=== PATIENT | female | born 1950 | race Caucasian/White ===

== ENCOUNTER 2020-09-15 19:45 | Inpatient (IN) ==
[2020-09-15] MEDS ORDERED: SODIUM CHLORIDE 0.9% 1,000 ML IV STA (20:32)
[2020-09-15 20:59] LABS: Basophils # 0.1 10*3/uL (0.0-0.2); Basophils % 0.3 % (0.0-0.8); Eosinophils % 0.1 % (0.00-10.9); Hematocrit 22.7 VOL% (35.7-47.0); Hemoglobin 6.6 GM/DL (12.0-16.0); Immature Granulocytes % 0.8 %; Immature Granulocytes Absolute 0.12 #; Lymphocytes # 1.1 10*3/uL (1.4-4.0); Lymphocytes % 7.3 % (21.3-54.2); Mean Corpuscular HGB Conc 29.1 GM/DL (32-36); Mean Corpuscular Volume 71.6 FL (87-102); Mean Platelet Volume 9.4 FL (9.6-12.0); Monocytes % 3.8 % (1.7-12.7); Neutrophils % 87.7 % (38.7-73.9); Platelet Count 676 T/CUMM (130-400); Red Blood Count 3.17 MC/CUMM (3.8-5.5); Red Cell Distribution Width 18.6 % (9.3-17.3)
[2020-09-15 21:09] LABS: INR 1.2; PT Patient Result 12.8 SECS (9.8-11.9)
[2020-09-15 21:20] LABS: Alanine Aminotransferase 38 U/L (13-56); Albumin 2.3 G/DL (3.4-5.0); Alkaline Phosphatase 200 U/L (45-117); Aspartate Amino Transferase 32 U/L (0-37); Bilirubin,Total < 0.39 MG/DL (0.2-1.0); Blood Urea Nitrogen 15 MG/DL (7-18); Calcium 8.1 MG/DL (8.5-10.1); Carbon Dioxide 24 MMOL/L (21-32); Estimated Glom Filtration Rate 59 ML/MIN; Glucose 139 MG/DL (74-106); Osmolality,Calculated 279.5 MOS/KG (273-304); Sodium 139 MMOL/L (136-145); Total Protein 6.1 G/DL (6.4-8.3)
[2020-09-15] MEDS ORDERED: SODIUM CHLORIDE 0.9% 1,000 ML IV PRN (21:37)
[2020-09-16] MEDS: SODIUM CHLORIDE 0.9% 1,000 ML IV SCH ×6 (01:00→22:46)
[2020-09-16] MEDS ORDERED: SODIUM CHLORIDE 0.9% 1,000 ML IV PRN ×2 (06:38→08:36)
[2020-09-16 07:29] LABS: Basophils # 0.1 10*3/uL (0.0-0.2); Basophils % 0.4 % (0.0-0.8); Eosinophils % 0.3 % (0.00-10.9); Hemoglobin 7.1 GM/DL (12.0-16.0); Immature Granulocytes % 0.4 %; Immature Granulocytes Absolute 0.05 #; Lymphocytes # 1.8 10*3/uL (1.4-4.0); Lymphocytes % 15.2 % (21.3-54.2); Mean Corpuscular HGB Conc 30.9 GM/DL (32-36); Mean Corpuscular Volume 76.7 FL (87-102); Mean Platelet Volume 9.6 FL (9.6-12.0); Monocytes % 10.6 % (1.7-12.7); Neutrophils % 73.1 % (38.7-73.9); Platelet Count 519 T/CUMM (130-400); Red Cell Distribution Width 20.3 % (9.3-17.3); White Blood Count 11.5 T/CUMM (4-12)
[2020-09-16] MEDS: PANTOPRAZOLE 40 MG VIAL IV SCH ×2 (07:36→09:08)
[2020-09-16] MEDS: ONDANSETRON 4 MG/2 ML VIAL IV PRN ×2 (07:36→19:07)
[2020-09-16 07:47] LABS: Bilirubin,Total 0.5 MG/DL (0.2-1.0); Calcium 7.6 MG/DL (8.5-10.1); Osmolality,Calculated 276.8 MOS/KG (273-304); Potassium 3.8 MMOL/L (3.5-5.1)
[2020-09-16] MEDS ORDERED: PHENYLEPHRINE DRIP 40 MG/250 ML PREMIX IV ONE (07:58)
[2020-09-16] MEDS: PHENYLEPHRINE DRIP 40 MG/250 ML PREMIX IV PRN ×2 (08:04→14:20)
[2020-09-16] MEDS ORDERED: SODIUM CHLORIDE 0.9% 1,000 ML IV ONE (08:28)
[2020-09-16] MEDS ORDERED: MIDAZOLAM 2 MG/2 ML VIAL IV ONE (08:49)
[2020-09-16] MEDS ORDERED: fentaNYL 100 MCG/2 ML VIAL IV ONE (08:49)
[2020-09-16] MEDS ORDERED: HEPARIN/NACL 0.9% 2 UNITS/ML 3,000 ML IV ONE (08:51)
[2020-09-16] MEDS ORDERED: DOCUSATE SODIUM 100 MG CAPSULE PO SCH (09:00)
[2020-09-16 11:23] LABS: Bacteria,Urine Occasional /HPF (Few); Bilirubin,Urine Negative (Negative); Blood, Urine Negative (Negative); Glucose,Urine (UA) Negative (Negative); Hyaline Casts,Urine 1 /LPF (0-3); Ketones,Urine Negative (Negative); Mucus,Urine Occasional /LPF (Occasional); Nitrite,Urine Negative (Negative); Protein,Urine Negative; RBC,Urine 2 /HPF (0-4); Squamous Epithelial Cell,Urine Occasional /HPF (0-10); Urine Appearance Slightly Hazy (Clear); Urine Color Yellow (Yellow); Urine Specific Gravity 1.027 (1.001-1.035); Urine Urobilinogen < 2.0 EU/DL (0.2-1.0); WBC,Urine 1 /HPF (0-6)
[2020-09-16] MEDS: VASOPRESSIN 100 UNITS in SODIUM CHLORIDE 0.9% 95 ML IV SCH ×2 (12:05→15:51)
[2020-09-16 19:23] LABS: Basophils % 0.1 % (0.0-0.8); Hematocrit 21.6 VOL% (35.7-47.0); Hemoglobin 7.1 GM/DL (12.0-16.0); Immature Granulocytes % 0.9 %; Immature Granulocytes Absolute 0.21 #; Lymphocytes % 8.8 % (21.3-54.2); Mean Corpuscular HGB Conc 32.9 GM/DL (32-36); Mean Platelet Volume 9.7 FL (9.6-12.0); NRBC # 0.02 10*3/uL; Neutrophils % 83.2 % (38.7-73.9); Platelet Count 230 T/CUMM (130-400); Red Blood Count 2.57 MC/CUMM (3.8-5.5); Red Cell Distribution Width 17.8 % (9.3-17.3); White Blood Count 22.9 T/CUMM (4-12)
[2020-09-16 19:48] LABS: Hypochromasia 1+; Lymphocytes 9 % (20-55); Microcytosis 1+; Myelocytes 1 %; Segmented Neutrophils 85 % (50-85); Total Cells Counted 100
[2020-09-16 19:49] LABS: Platelet Estimate Decreased
[2020-09-16 22:34] LABS: Basophils % 0.1 % (0.0-0.8); Hematocrit 19.3 VOL% (35.7-47.0); Immature Granulocytes % 0.6 %; Immature Granulocytes Absolute 0.11 #; Lymphocytes % 11.3 % (21.3-54.2); Mean Corpuscular HGB Conc 32.6 GM/DL (32-36); Mean Corpuscular Volume 83.2 FL (87-102); Mean Platelet Volume 9.7 FL (9.6-12.0); Platelet Count 218 T/CUMM (130-400); Red Blood Count 2.32 MC/CUMM (3.8-5.5); Red Cell Distribution Width 17.5 % (9.3-17.3); White Blood Count 17.2 T/CUMM (4-12)
[2020-09-16 22:35] LABS: Hemoglobin 6.3 GM/DL (12.0-16.0)
[2020-09-17] MEDS: VASOPRESSIN 100 UNITS in SODIUM CHLORIDE 0.9% 95 ML IV SCH ×2 (00:31→09:00)
[2020-09-17] MEDS ORDERED: ACETAMINOPHEN 325 MG TABLET PO ONE (00:38)
[2020-09-17] MEDS: SODIUM CHLORIDE 0.9% 1,000 ML IV SCH ×5 (02:17→21:23)
[2020-09-17 05:49] LABS: Basophils % 0.1 % (0.0-0.8); Immature Granulocytes Absolute 0.16 #; Lymphocytes # 1.6 10*3/uL (1.4-4.0); Lymphocytes % 9.5 % (21.3-54.2); Mean Corpuscular HGB Conc 32.8 GM/DL (32-36); Mean Corpuscular Volume 83.1 FL (87-102); Mean Platelet Volume 9.7 FL (9.6-12.0); Monocytes % 8.6 % (1.7-12.7); NRBC # 0.02 10*3/uL; Neutrophils % 80.8 % (38.7-73.9); Platelet Count 215 T/CUMM (130-400); Red Blood Count 2.13 MC/CUMM (3.8-5.5); Red Cell Distribution Width 17.8 % (9.3-17.3); White Blood Count 16.4 T/CUMM (4-12)
[2020-09-17 05:52] LABS: Hematocrit 17.7 VOL% (35.7-47.0); Hemoglobin 5.8 GM/DL (12.0-16.0)
[2020-09-17] MEDS ORDERED: SODIUM CHLORIDE 0.9% 1,000 ML IV PRN (05:54)
[2020-09-17] MEDS: PANTOPRAZOLE 40 MG VIAL IV SCH (09:11)
[2020-09-17] MEDS: ACETAMINOPHEN 325 MG TABLET PO PRN (12:10)
[2020-09-17 14:41] LABS: Basophils % 0.1 % (0.0-0.8); Eosinophils % 0.1 % (0.00-10.9); Hematocrit 25.6 VOL% (35.7-47.0); Hemoglobin 8.5 GM/DL (12.0-16.0); Immature Granulocytes Absolute 0.15 #; Lymphocytes % 6.7 % (21.3-54.2); Mean Corpuscular HGB Conc 33.2 GM/DL (32-36); Mean Corpuscular Volume 83.7 FL (87-102); Mean Platelet Volume 10.2 FL (9.6-12.0); Neutrophils % 84.1 % (38.7-73.9); Platelet Count 206 T/CUMM (130-400); Red Blood Count 3.06 MC/CUMM (3.8-5.5); Red Cell Distribution Width 16.5 % (9.3-17.3); White Blood Count 15.1 T/CUMM (4-12)
[2020-09-18 04:45] LABS: Basophils % 0.1 % (0.0-0.8); Hematocrit 24.9 VOL% (35.7-47.0); Hemoglobin 8.2 GM/DL (12.0-16.0); Immature Granulocytes % 0.9 %; Immature Granulocytes Absolute 0.14 #; Lymphocytes # 1.2 10*3/uL (1.4-4.0); Lymphocytes % 7.8 % (21.3-54.2); Mean Corpuscular HGB Conc 32.9 GM/DL (32-36); Mean Corpuscular Volume 83.3 FL (87-102); Mean Platelet Volume 10.2 FL (9.6-12.0); Monocytes % 8.8 % (1.7-12.7); Neutrophils % 82.4 % (38.7-73.9); Platelet Count 200 T/CUMM (130-400); Red Blood Count 2.99 MC/CUMM (3.8-5.5); Red Cell Distribution Width 16.2 % (9.3-17.3); White Blood Count 15.6 T/CUMM (4-12)
[2020-09-18 05:08] LABS: Albumin 1.6 G/DL (3.4-5.0); Bilirubin,Total 1.2 MG/DL (0.2-1.0); Calcium 7.4 MG/DL (8.5-10.1); Osmolality,Calculated 274.5 MOS/KG (273-304); Potassium 3.1 MMOL/L (3.5-5.1); Total Protein 4.6 G/DL (6.4-8.3)
[2020-09-18] MEDS: SODIUM CHLORIDE 0.9% 1,000 ML IV SCH ×3 (05:23→22:27)
[2020-09-18] MEDS: POTASSIUM CHLORIDE 20 MEQ TABLET PO PRN ×5 (07:12→22:26)
[2020-09-18] MEDS: PANTOPRAZOLE 40 MG VIAL IV SCH (10:16)
[2020-09-18] MEDS ORDERED: DIAZEPAM 5 MG TABLET PO ONE (12:15)
[2020-09-18] MEDS: SODIUM CHLORIDE 0.45% 1,000 ML IV SCH (18:05)
[2020-09-18] MEDS: ACETAMINOPHEN 325 MG TABLET PO PRN (20:25)
[2020-09-19] MEDS: POTASSIUM CHLORIDE 20 MEQ TABLET PO PRN (00:20)
[2020-09-19 06:05] LABS: Basophils % 0.1 % (0.0-0.8); Eosinophils % 0.1 % (0.00-10.9); Hematocrit 26.8 VOL% (35.7-47.0); Hemoglobin 8.6 GM/DL (12.0-16.0); Immature Granulocytes % 0.7 %; Immature Granulocytes Absolute 0.11 #; Lymphocytes # 0.9 10*3/uL (1.4-4.0); Lymphocytes % 5.7 % (21.3-54.2); Mean Corpuscular HGB Conc 32.1 GM/DL (32-36); Mean Corpuscular Volume 86.7 FL (87-102); Mean Platelet Volume 9.8 FL (9.6-12.0); Monocytes % 8.4 % (1.7-12.7); Platelet Count 189 T/CUMM (130-400); Red Blood Count 3.09 MC/CUMM (3.8-5.5); Red Cell Distribution Width 16.5 % (9.3-17.3); White Blood Count 14.9 T/CUMM (4-12)
[2020-09-19 06:40] LABS: Calcium 7.6 MG/DL (8.5-10.1); Osmolality,Calculated 270.8 MOS/KG (273-304); Potassium 4.4 MMOL/L (3.5-5.1)
[2020-09-19] MEDS: SODIUM CHLORIDE 0.9% 1,000 ML IV SCH ×2 (06:41→14:37)
[2020-09-19] MEDS ORDERED: GABAPENTIN 300 MG CAPSULE PO ONE (07:20)
[2020-09-19] MEDS ORDERED: ERTAPENEM 1,000 MG in SODIUM CHLORIDE 0.9% 100 ML IV ONE (07:20)
[2020-09-19] MEDS ORDERED: ALVIMOPAN 12 MG CAPSULE PO ONE (07:20)
[2020-09-19] MEDS ORDERED: IBUPROFEN 600 MG TABLET PO ONE (07:20)
[2020-09-19] MEDS: PANTOPRAZOLE 40 MG VIAL IV SCH (08:05)
[2020-09-19] MEDS ORDERED: fentaNYL 100 MCG/2 ML VIAL ONE ×2 (11:15→11:26)
[2020-09-19] MEDS ORDERED: MIDAZOLAM 2 MG/2 ML VIAL ONE ×2 (11:15→11:27)
[2020-09-19] MEDS ORDERED: ROPIVACAINE 0.5% 30 ML VIAL ONE (11:15)
[2020-09-19] MEDS ORDERED: LIDOCAINE 1% 5 ML VIAL ONE (11:15)
[2020-09-19] MEDS ORDERED: DEXAMETHASONE 4 MG/1 ML VIAL ONE (11:20)
[2020-09-19] MEDS ORDERED: HEPARIN 5,000 UNIT/1 ML VIAL ONE (11:24)
[2020-09-19] MEDS ORDERED: BUPIVACAINE MPF 0.25% 30 ML VIAL ONE (11:24)
[2020-09-19] MEDS ORDERED: LIDOCAINE 1% 20 ML VIAL ONE (11:25)
[2020-09-19] MEDS ORDERED: TISSUE ADHESIVE 1 EACH APPLICATOR TOP ONE (11:25)
[2020-09-19] MEDS ORDERED: INDOCYANINE GREEN 25 MG VIAL IV ONE (11:26)
[2020-09-19] MEDS: SODIUM CHLORIDE 0.45% 1,000 ML IV SCH (11:31)
[2020-09-19] MEDS ORDERED: PHENYLEPHRINE 1 MG/10 ML SYRINGE IV ONE (12:13)
[2020-09-19] MEDS ORDERED: PHENYLEPHRINE 10 MG/1 ML VIAL IV ONE (13:00)
[2020-09-19] MEDS ORDERED: ACETAMINOPHEN 1,000 MG/100 ML VIAL IV ONE (13:00)
[2020-09-19] MEDS ORDERED: GLYCOPYRROLATE 0.4 MG/2 ML VIAL ONE (13:57)
[2020-09-19] MEDS ORDERED: NEOSTIGMINE 10 MG/10 ML VIAL ONE (13:57)
[2020-09-19] MEDS ORDERED: ONDANSETRON 4 MG/2 ML VIAL IV PRN (14:48)
[2020-09-19] MEDS: HYDROmorphone 2 MG/1 ML VIAL IV PRN ×2 (14:51→15:14)
[2020-09-19 17:08] LABS: Basophils % 0.1 % (0.0-0.8); Hematocrit 26.5 VOL% (35.7-47.0); Hemoglobin 8.6 GM/DL (12.0-16.0); Immature Granulocytes % 0.5 %; Immature Granulocytes Absolute 0.06 #; Lymphocytes # 0.5 10*3/uL (1.4-4.0); Lymphocytes % 3.9 % (21.3-54.2); Mean Corpuscular HGB Conc 32.5 GM/DL (32-36); Mean Corpuscular Volume 86.6 FL (87-102); Mean Platelet Volume 10.2 FL (9.6-12.0); Monocytes % 5.2 % (1.7-12.7); Neutrophils % 90.3 % (38.7-73.9); Platelet Count 214 T/CUMM (130-400); Red Blood Count 3.06 MC/CUMM (3.8-5.5); Red Cell Distribution Width 16.7 % (9.3-17.3); White Blood Count 12.5 T/CUMM (4-12)
[2020-09-19 17:27] LABS: Calcium 7.1 MG/DL (8.5-10.1); Osmolality,Calculated 276.5 MOS/KG (273-304); Potassium 3.5 MMOL/L (3.5-5.1)
[2020-09-19 17:29] LABS: Band Neutrophils 5 % (0-10); Hypochromasia 1+; Lymphocytes 5 % (20-55); Microcytosis 1+; Segmented Neutrophils 87 % (50-85); Total Cells Counted 100
[2020-09-19 17:30] LABS: Polychromasia Slight
[2020-09-20] MEDS: SODIUM CHLORIDE 0.9% 1,000 ML IV SCH ×2 (01:02→09:16)
[2020-09-20 05:39] LABS: Hemoglobin 7.4 GM/DL (12.0-16.0); Immature Granulocytes % 0.5 %; Immature Granulocytes Absolute 0.07 #; Lymphocytes # 0.6 10*3/uL (1.4-4.0); Lymphocytes % 4.2 % (21.3-54.2); Mean Corpuscular HGB Conc 32.2 GM/DL (32-36); Mean Corpuscular Volume 86.8 FL (87-102); Mean Platelet Volume 10.7 FL (9.6-12.0); Monocytes % 5.2 % (1.7-12.7); Neutrophils % 90.1 % (38.7-73.9); Platelet Count 200 T/CUMM (130-400); Red Blood Count 2.65 MC/CUMM (3.8-5.5); Red Cell Distribution Width 16.9 % (9.3-17.3); White Blood Count 14.2 T/CUMM (4-12)
[2020-09-20 06:16] LABS: Band Neutrophils 3 % (0-10); Lymphocytes 5 % (20-55); Metamyelocytes 1 %; Platelet Estimate Normal; Segmented Neutrophils 85 % (50-85); Total Cells Counted 100
[2020-09-20 06:17] LABS: Albumin 1.3 G/DL (3.4-5.0); Bilirubin,Total 0.6 MG/DL (0.2-1.0); Calcium 7.2 MG/DL (8.5-10.1); Osmolality,Calculated 279.3 MOS/KG (273-304); Total Protein 4.5 G/DL (6.4-8.3)
[2020-09-20] MEDS ORDERED: SODIUM CHLORIDE 0.9% 1,000 ML IV PRN (07:59)
[2020-09-20] MEDS ORDERED: APIXABAN 5 MG TABLET PO SCH (09:00)
[2020-09-20] MEDS: PANTOPRAZOLE 40 MG VIAL IV SCH (09:15)
[2020-09-20] MEDS ORDERED: HYDROmorphone 2 MG/1 ML VIAL IV PRN (09:28)
[2020-09-20] MEDS: KETOROLAC 30 MG/1 ML VIAL IV SCH ×3 (10:10→21:07)
[2020-09-20 12:21] LABS: Hemoglobin 8.6 GM/DL (12.0-16.0)
[2020-09-20 19:02] LABS: Hemoglobin 9.4 GM/DL (12.0-16.0)
[2020-09-21] MEDS: SODIUM CHLORIDE 0.9% 1,000 ML IV SCH ×2 (01:08→01:10)
[2020-09-21] MEDS: KETOROLAC 30 MG/1 ML VIAL IV SCH ×4 (04:16→20:59)
[2020-09-21 05:17] LABS: Hematocrit 27.6 VOL% (35.7-47.0); Hemoglobin 9.1 GM/DL (12.0-16.0); Immature Granulocytes % 0.4 %; Immature Granulocytes Absolute 0.04 #; Lymphocytes # 1.4 10*3/uL (1.4-4.0); Lymphocytes % 13.9 % (21.3-54.2); Mean Corpuscular Volume 86.5 FL (87-102); Mean Platelet Volume 10.8 FL (9.6-12.0); Monocytes % 8.7 % (1.7-12.7); NRBC # 0.02 10*3/uL; Platelet Count 240 T/CUMM (130-400); Red Blood Count 3.19 MC/CUMM (3.8-5.5); Red Cell Distribution Width 16.2 % (9.3-17.3); White Blood Count 9.7 T/CUMM (4-12)
[2020-09-21] MEDS: PANTOPRAZOLE 40 MG VIAL IV SCH (09:22)
[2020-09-22] MEDS: KETOROLAC 30 MG/1 ML VIAL IV SCH ×4 (03:10→21:07)
[2020-09-22 06:15] LABS: Basophils % 0.1 % (0.0-0.8); Eosinophils # 0.2 10*3/uL (0.0-0.87); Eosinophils % 2.1 % (0.00-10.9); Hematocrit 28.1 VOL% (35.7-47.0); Hemoglobin 9.3 GM/DL (12.0-16.0); Immature Granulocytes % 0.5 %; Immature Granulocytes Absolute 0.04 #; Lymphocytes # 1.5 10*3/uL (1.4-4.0); Lymphocytes % 18.4 % (21.3-54.2); Mean Corpuscular HGB Conc 33.1 GM/DL (32-36); Mean Corpuscular Volume 87.3 FL (87-102); Mean Platelet Volume 10.3 FL (9.6-12.0); Monocytes % 9.8 % (1.7-12.7); Neutrophils % 69.1 % (38.7-73.9); Platelet Count 321 T/CUMM (130-400); Red Blood Count 3.22 MC/CUMM (3.8-5.5); Red Cell Distribution Width 16.2 % (9.3-17.3); White Blood Count 8.1 T/CUMM (4-12)
[2020-09-22 06:34] LABS: Calcium 7.8 MG/DL (8.5-10.1); Osmolality,Calculated 276.3 MOS/KG (273-304)
[2020-09-22] MEDS: PANTOPRAZOLE 40 MG VIAL IV SCH (08:54)
[2020-09-22] MEDS: ACETAMINOPHEN 325 MG TABLET PO PRN ×2 (08:55→15:12)
[2020-09-22] MEDS: POTASSIUM CHLORIDE 20 MEQ TABLET PO PRN ×4 (08:55→15:12)
[2020-09-22] MEDS: FLUTICASONE 50 MCG NASAL SPRAY 16 GM BOTTLE BOTH NARES SCH ×2 (10:59→21:08)
[2020-09-22] MEDS: APIXABAN 5 MG TABLET PO SCH (21:07)
[2020-09-23 05:01] LABS: Hematocrit 29.4 VOL% (35.7-47.0); Hemoglobin 9.4 GM/DL (12.0-16.0)
[2020-09-23] MEDS: KETOROLAC 30 MG/1 ML VIAL IV SCH ×2 (05:09→09:04)
[2020-09-23] MEDS ORDERED: BISACODYL 10 MG SUPP RECTAL ONE (08:08)
[2020-09-23] MEDS: PANTOPRAZOLE 40 MG VIAL IV SCH (09:04)
[2020-09-23] MEDS: APIXABAN 5 MG TABLET PO SCH (09:04)
[2020-09-23 09:23] VITALS: BP 132/53
[2020-09-23] MEDS: FLUTICASONE 50 MCG NASAL SPRAY 16 GM BOTTLE BOTH NARES SCH (09:23)
== END 2020-09-23 10:43 | disposition home or self-care (01) | DRG 329 ==
LOC: EDBD → EDUNIT# → N.ED 19:45 → SUATTDRO 21:36 → N.EDINP 21:36 → N.ICU 09-16 07:24 → N.5E 09-19 15:49
PROVIDERS: ADMIT Family Medicine; ATTEND Family Medicine

== ENCOUNTER 2020-10-03 13:13 | Inpatient (IN) ==
[2020-10-03] MEDS ORDERED: HYDROmorphone 2 MG/1 ML VIAL IV PRN (13:31)
[2020-10-03] MEDS ORDERED: ONDANSETRON 4 MG/2 ML VIAL IV PRN (13:31)
[2020-10-03] MEDS: PIPERACILLIN/TAZOBACTAM 3,375 MG in SODIUM CHLORIDE 0.9% 100 ML IV SCH ×2 (15:45→23:50)
[2020-10-03] MEDS ORDERED: SODIUM CHLORIDE 0.9% 1,000 ML IV ONE (15:46)
[2020-10-03] MEDS: SODIUM CHLORIDE 0.9% 1,000 ML IV SCH (16:56)
[2020-10-03] MEDS: ACETAMINOPHEN 325 MG TABLET PO PRN (20:02)
[2020-10-03] MEDS ORDERED: ENOXAPARIN 40 MG/0.4 ML SYRINGE SUBCUT SCH (21:00)
[2020-10-03] MEDS: FLUTICASONE 50 MCG NASAL SPRAY 16 GM BOTTLE BOTH NARES SCH (21:30)
[2020-10-04] MEDS: SODIUM CHLORIDE 0.9% 1,000 ML IV SCH ×3 (00:21→19:33)
[2020-10-04] MEDS: ACETAMINOPHEN 325 MG TABLET PO PRN ×3 (05:12→22:12)
[2020-10-04 05:53] LABS: Basophils % 0.3 % (0.0-0.8); Eosinophils # 0.5 10*3/uL (0.0-0.87); Eosinophils % 3.2 % (0.00-10.9); Hematocrit 26.5 VOL% (35.7-47.0); Immature Granulocytes % 0.7 %; Lymphocytes # 1.2 10*3/uL (1.4-4.0); Lymphocytes % 8.1 % (21.3-54.2); Mean Corpuscular HGB Conc 30.2 GM/DL (32-36); Mean Corpuscular Volume 88.9 FL (87-102); Mean Platelet Volume 9.6 FL (9.6-12.0); Monocytes % 9.4 % (1.7-12.7); Neutrophils % 78.3 % (38.7-73.9); Platelet Count 539 T/CUMM (130-400); Red Blood Count 2.98 MC/CUMM (3.8-5.5); Red Cell Distribution Width 16.4 % (9.3-17.3); White Blood Count 14.8 T/CUMM (4-12)
[2020-10-04 06:22] LABS: Calcium 8.2 MG/DL (8.5-10.1); Osmolality,Calculated 270.8 MOS/KG (273-304); Potassium 3.5 MMOL/L (3.5-5.1)
[2020-10-04] MEDS: PIPERACILLIN/TAZOBACTAM 3,375 MG in SODIUM CHLORIDE 0.9% 100 ML IV SCH ×3 (06:39→22:09)
[2020-10-04] MEDS: FLUTICASONE 50 MCG NASAL SPRAY 16 GM BOTTLE BOTH NARES SCH ×2 (09:14→20:32)
[2020-10-04] MEDS: PANTOPRAZOLE 40 MG VIAL IV SCH (09:14)
[2020-10-04] MEDS: APIXABAN 5 MG TABLET PO SCH ×2 (09:14→20:31)
[2020-10-05 04:48] LABS: Basophils % 0.3 % (0.0-0.8); Eosinophils # 0.5 10*3/uL (0.0-0.87); Eosinophils % 4.8 % (0.00-10.9); Hematocrit 25.5 VOL% (35.7-47.0); Hemoglobin 7.8 GM/DL (12.0-16.0); Immature Granulocytes % 0.4 %; Immature Granulocytes Absolute 0.04 #; Lymphocytes # 1.6 10*3/uL (1.4-4.0); Lymphocytes % 16.4 % (21.3-54.2); Mean Corpuscular HGB Conc 30.6 GM/DL (32-36); Mean Corpuscular Volume 90.7 FL (87-102); Mean Platelet Volume 9.6 FL (9.6-12.0); Monocytes % 8.7 % (1.7-12.7); Neutrophils % 69.4 % (38.7-73.9); Platelet Count 507 T/CUMM (130-400); Red Blood Count 2.81 MC/CUMM (3.8-5.5); Red Cell Distribution Width 16.2 % (9.3-17.3); White Blood Count 9.9 T/CUMM (4-12)
[2020-10-05] MEDS: PIPERACILLIN/TAZOBACTAM 3,375 MG in SODIUM CHLORIDE 0.9% 100 ML IV SCH ×3 (06:10→22:20)
[2020-10-05] MEDS: APIXABAN 5 MG TABLET PO SCH ×2 (08:50→20:21)
[2020-10-05] MEDS: ACETAMINOPHEN 325 MG TABLET PO PRN ×2 (08:50→20:21)
[2020-10-05] MEDS: PANTOPRAZOLE 40 MG VIAL IV SCH (08:51)
[2020-10-05] MEDS: FLUTICASONE 50 MCG NASAL SPRAY 16 GM BOTTLE BOTH NARES SCH ×2 (09:07→20:21)
[2020-10-05] MEDS: SODIUM CHLORIDE 0.9% 1,000 ML IV SCH ×2 (11:28)
[2020-10-06 05:50] LABS: Basophils # 0.1 10*3/uL (0.0-0.2); Basophils % 0.6 % (0.0-0.8); Eosinophils # 0.4 10*3/uL (0.0-0.87); Eosinophils % 4.9 % (0.00-10.9); Hematocrit 26.7 VOL% (35.7-47.0); Hemoglobin 8.1 GM/DL (12.0-16.0); Immature Granulocytes % 0.6 %; Immature Granulocytes Absolute 0.05 #; Lymphocytes # 1.7 10*3/uL (1.4-4.0); Lymphocytes % 19.3 % (21.3-54.2); Mean Corpuscular HGB Conc 30.3 GM/DL (32-36); Mean Corpuscular Volume 88.7 FL (87-102); Mean Platelet Volume 9.4 FL (9.6-12.0); Monocytes % 10.9 % (1.7-12.7); Neutrophils % 63.7 % (38.7-73.9); Platelet Count 532 T/CUMM (130-400); Red Blood Count 3.01 MC/CUMM (3.8-5.5); Red Cell Distribution Width 16.2 % (9.3-17.3); White Blood Count 8.6 T/CUMM (4-12)
[2020-10-06] MEDS: PIPERACILLIN/TAZOBACTAM 3,375 MG in SODIUM CHLORIDE 0.9% 100 ML IV SCH ×3 (06:07→23:19)
[2020-10-06 06:16] LABS: Albumin 1.8 G/DL (3.4-5.0); Bilirubin,Total 0.4 MG/DL (0.2-1.0); Osmolality,Calculated 275.4 MOS/KG (273-304); Potassium 3.3 MMOL/L (3.5-5.1); Total Protein 5.6 G/DL (6.4-8.3)
[2020-10-06 06:17] LABS: Eosinophils 2 % (0-10); Hypochromasia 1+; Lymphocytes 18 % (20-55); Microcytosis 1+; Platelet Estimate Increased; Segmented Neutrophils 72 % (50-85); Total Cells Counted 100
[2020-10-06] MEDS ORDERED: POTASSIUM CHLORIDE 20 MEQ TABLET PO ONE (07:30)
[2020-10-06] MEDS: PANTOPRAZOLE 40 MG VIAL IV SCH (08:15)
[2020-10-06] MEDS: APIXABAN 5 MG TABLET PO SCH ×2 (08:15→20:37)
[2020-10-06] MEDS: FLUTICASONE 50 MCG NASAL SPRAY 16 GM BOTTLE BOTH NARES SCH ×2 (08:16→20:38)
[2020-10-06] MEDS: SODIUM CHLORIDE 0.9% 1,000 ML IV SCH ×3 (12:59→15:40)
[2020-10-06] MEDS: ACETAMINOPHEN 325 MG TABLET PO PRN (16:06)
[2020-10-07] MEDS: PIPERACILLIN/TAZOBACTAM 3,375 MG in SODIUM CHLORIDE 0.9% 100 ML IV SCH (06:19)
[2020-10-07] MEDS: SODIUM CHLORIDE 0.9% 1,000 ML IV SCH ×2 (06:21→08:44)
[2020-10-07] MEDS: APIXABAN 5 MG TABLET PO SCH ×2 (08:40→20:15)
[2020-10-07] MEDS: PANTOPRAZOLE 40 MG VIAL IV SCH (08:40)
[2020-10-07] MEDS: FLUTICASONE 50 MCG NASAL SPRAY 16 GM BOTTLE BOTH NARES SCH ×2 (08:41→20:16)
[2020-10-07] MEDS: AMOXICILLIN/CLAV 875 MG TABLET PO SCH ×2 (11:57→20:15)
[2020-10-07] MEDS: ACETAMINOPHEN 325 MG TABLET PO PRN (20:26)
[2020-10-08 05:52] LABS: Basophils # 0.1 10*3/uL (0.0-0.2); Basophils % 0.6 % (0.0-0.8); Eosinophils # 0.5 10*3/uL (0.0-0.87); Hematocrit 29.4 VOL% (35.7-47.0); Hemoglobin 8.9 GM/DL (12.0-16.0); Immature Granulocytes % 1.1 %; Lymphocytes # 2.4 10*3/uL (1.4-4.0); Lymphocytes % 25.4 % (21.3-54.2); Mean Corpuscular HGB Conc 30.3 GM/DL (32-36); Mean Platelet Volume 9.8 FL (9.6-12.0); Neutrophils % 57.9 % (38.7-73.9); Platelet Count 557 T/CUMM (130-400); Red Blood Count 3.34 MC/CUMM (3.8-5.5); Red Cell Distribution Width 16.1 % (9.3-17.3); White Blood Count 9.3 T/CUMM (4-12)
[2020-10-08 06:21] LABS: Calcium 8.7 MG/DL (8.5-10.1); Osmolality,Calculated 276.4 MOS/KG (273-304); Potassium 3.3 MMOL/L (3.5-5.1)
[2020-10-08 06:24] LABS: Eosinophils 2 % (0-10); Lymphocytes 28 % (20-55); Platelet Estimate Increased; Segmented Neutrophils 61 % (50-85); Total Cells Counted 100
[2020-10-08 06:25] LABS: Hypochromasia Slight
[2020-10-08 08:23] VITALS: BP 126/60
[2020-10-08] MEDS: AMOXICILLIN/CLAV 875 MG TABLET PO SCH (08:52)
[2020-10-08] MEDS: APIXABAN 5 MG TABLET PO SCH (08:52)
[2020-10-08] MEDS: FLUTICASONE 50 MCG NASAL SPRAY 16 GM BOTTLE BOTH NARES SCH (08:54)
[2020-10-08] MEDS: PANTOPRAZOLE 40 MG VIAL IV SCH (08:54)
== END 2020-10-08 09:22 | disposition home or self-care (01) | DRG 863 ==
LOC: N.TELEN 14:03
PROVIDERS: ADMIT Family Medicine; ATTEND Family Medicine

== ENCOUNTER 2021-01-25 12:06 | Inpatient (IN) ==
[2021-01-25] MEDS ORDERED: ONDANSETRON 4 MG/2 ML VIAL IV STA (13:09)
[2021-01-25] MEDS ORDERED: HYDROmorphone 2 MG/1 ML VIAL IV STA (13:11)
[2021-01-25 14:39] LABS: Basophils % 0.2 % (0.0-0.8); Hematocrit 39.4 VOL% (35.7-47.0); Hemoglobin 12.7 GM/DL (12.0-16.0); Immature Granulocytes % 0.4 %; Immature Granulocytes Absolute 0.04 #; Lymphocytes # 0.9 10*3/uL (1.4-4.0); Lymphocytes % 8.2 % (21.3-54.2); Mean Corpuscular HGB Conc 32.2 GM/DL (32-36); Mean Corpuscular Volume 94.3 FL (87-102); Neutrophils % 76.2 % (38.7-73.9); Platelet Count 233 T/CUMM (130-400); Red Blood Count 4.18 MC/CUMM (3.8-5.5); Red Cell Distribution Width 24.5 % (9.3-17.3); White Blood Count 10.4 T/CUMM (4-12)
[2021-01-25 14:58] LABS: Albumin 2.8 G/DL (3.4-5.0); Bilirubin,Total 0.7 MG/DL (0.2-1.0); Calcium 8.9 MG/DL (8.5-10.1); Osmolality,Calculated 277.7 MOS/KG (273-304); Total Protein 6.6 G/DL (6.4-8.2)
[2021-01-25 15:12] LABS: Anisocytosis 1+; Macrocytosis 1+; Microcytosis 1+
[2021-01-25 15:13] LABS: Polychromasia Few
[2021-01-25 15:14] LABS: Platelet Estimate Normal
[2021-01-25] MEDS ORDERED: PIPERACILLIN/TAZOBACTAM 3,375 MG in SODIUM CHLORIDE 0.9% 100 ML IV STA ×2 (15:54→16:16)
[2021-01-25] MEDS ORDERED: HYDROmorphone 2 MG/1 ML VIAL IV PRN (16:23)
[2021-01-25] MEDS ORDERED: FLUTICASONE 50 MCG NASAL SPRAY 16 GM BOTTLE BOTH NARES PRN (16:24)
[2021-01-25 17:18] LABS: INR 1.1; PT Patient Result 12.3 SECS (10.5-12.0); Partial Thromboplastin Time 34.8 SECS (23.9-33.8)
[2021-01-25] MEDS: HYDROmorphone 2 MG/1 ML VIAL IV PRN (20:07)
[2021-01-25] MEDS: APIXABAN 5 MG TABLET PO SCH (23:19)
[2021-01-25] MEDS: FERROUS SULFATE 325 MG TABLET PO SCH (23:19)
[2021-01-25] MEDS: DOCUSATE SODIUM 100 MG CAPSULE PO SCH (23:19)
[2021-01-25] MEDS: ATORVASTATIN 10 MG TABLET PO SCH (23:20)
[2021-01-26] MEDS: PIPERACILLIN/TAZOBACTAM 3,375 MG in SODIUM CHLORIDE 0.9% 100 ML IV SCH ×4 (01:34→23:57)
[2021-01-26] MEDS: SODIUM CHLORIDE 0.9% 1,000 ML IV SCH ×5 (01:38→23:56)
[2021-01-26] MEDS: HYDROmorphone 2 MG/1 ML VIAL IV PRN ×4 (01:44→23:57)
[2021-01-26 02:48] LABS: Bilirubin,Urine Negative (Negative); Blood, Urine Negative (Negative); Glucose,Urine (UA) Negative (Negative); Ketones,Urine Negative (Negative); Mucus,Urine Occasional /LPF (Occasional); Nitrite,Urine Negative (Negative); Protein,Urine 30 MG/DL; RBC,Urine 4 /HPF (0-4); Squamous Epithelial Cell,Urine Occasional /HPF (0-10); Urine Appearance CLEAR (Clear); Urine Color Yellow (Yellow); Urine Specific Gravity > 1.060 (1.001-1.035)
[2021-01-26 04:46] LABS: Basophils % 0.3 % (0.0-0.8); Eosinophils % 0.1 % (0.00-10.9); Hematocrit 37.9 VOL% (35.7-47.0); Hemoglobin 11.4 GM/DL (12.0-16.0); Immature Granulocytes % 0.6 %; Immature Granulocytes Absolute 0.08 #; Lymphocytes # 1.7 10*3/uL (1.4-4.0); Lymphocytes % 12.3 % (21.3-54.2); Mean Corpuscular HGB Conc 30.1 GM/DL (32-36); Mean Corpuscular Volume 98.7 FL (87-102); Mean Platelet Volume 10.8 FL (9.6-12.0); Monocytes % 14.9 % (1.7-12.7); Neutrophils % 71.8 % (38.7-73.9); Platelet Count 232 T/CUMM (130-400); Red Blood Count 3.84 MC/CUMM (3.8-5.5); Red Cell Distribution Width 24.5 % (9.3-17.3); White Blood Count 13.7 T/CUMM (4-12)
[2021-01-26 05:03] LABS: Albumin 2.5 G/DL (3.4-5.0); Bilirubin,Total 0.9 MG/DL (0.2-1.0); Calcium 8.6 MG/DL (8.5-10.1); Osmolality,Calculated 273.8 MOS/KG (273-304); Potassium 3.9 MMOL/L (3.5-5.1); Total Protein 5.9 G/DL (6.4-8.2)
[2021-01-26 05:16] LABS: Microcytosis Slight; Platelet Estimate Adequate
[2021-01-26] MEDS ORDERED: PHENOL 1.4% THROAT SPRAY 177 ML BOTTLE PO PRN (07:57)
[2021-01-26] MEDS: DOCUSATE SODIUM 100 MG CAPSULE PO SCH ×2 (09:00→20:02)
[2021-01-26] MEDS: FERROUS SULFATE 325 MG TABLET PO SCH ×2 (09:00→20:03)
[2021-01-26] MEDS ORDERED: metroNIDAZOLE INJ 500 MG/100 ML PREMIX IV SCH (09:00)
[2021-01-26] MEDS: APIXABAN 5 MG TABLET PO SCH ×2 (09:01→20:03)
[2021-01-26] MEDS: PANTOPRAZOLE 40 MG TABLET PO SCH (09:01)
[2021-01-26] MEDS: ONDANSETRON 4 MG/2 ML VIAL IV PRN ×2 (10:20→23:56)
[2021-01-26] MEDS: metroNIDAZOLE INJ 500 MG/100 ML PREMIX IV SCH ×2 (13:30→21:41)
[2021-01-26] MEDS: ATORVASTATIN 10 MG TABLET PO SCH (20:02)
[2021-01-27] MEDS ORDERED: PANTOPRAZOLE 40 MG TABLET PO ONE (00:08)
[2021-01-27] MEDS ORDERED: DICYCLOMINE 20 MG TABLET PO PRN (00:08)
[2021-01-27] MEDS: DICYCLOMINE 10 MG CAPSULE PO PRN (00:14)
[2021-01-27] MEDS: SODIUM CHLORIDE 0.9% 1,000 ML IV SCH ×2 (03:23→08:14)
[2021-01-27] MEDS: metroNIDAZOLE INJ 500 MG/100 ML PREMIX IV SCH ×3 (04:03→21:10)
[2021-01-27] MEDS: HYDROmorphone 2 MG/1 ML VIAL IV PRN ×3 (04:03→19:22)
[2021-01-27 06:02] LABS: Basophils % 0.3 % (0.0-0.8); Eosinophils % 0.1 % (0.00-10.9); Hematocrit 36.5 VOL% (35.7-47.0); Hemoglobin 11.3 GM/DL (12.0-16.0); Immature Granulocytes % 0.7 %; Lymphocytes % 7.6 % (21.3-54.2); Mean Corpuscular Volume 98.4 FL (87-102); Mean Platelet Volume 11.1 FL (9.6-12.0); Monocytes % 12.8 % (1.7-12.7); Neutrophils % 78.5 % (38.7-73.9); Platelet Count 215 T/CUMM (130-400); Red Blood Count 3.71 MC/CUMM (3.8-5.5); Red Cell Distribution Width 23.2 % (9.3-17.3); White Blood Count 13.6 T/CUMM (4-12)
[2021-01-27 06:37] LABS: Platelet Estimate Normal; Polychromasia Slight
[2021-01-27] MEDS: PIPERACILLIN/TAZOBACTAM 3,375 MG in SODIUM CHLORIDE 0.9% 100 ML IV SCH ×2 (08:13→16:58)
[2021-01-27] MEDS: APIXABAN 5 MG TABLET PO SCH ×2 (10:56→20:44)
[2021-01-27] MEDS: PANTOPRAZOLE 40 MG TABLET PO SCH (10:56)
[2021-01-27] MEDS: DOCUSATE SODIUM 100 MG CAPSULE PO SCH ×2 (10:56→20:44)
[2021-01-27] MEDS: FERROUS SULFATE 325 MG TABLET PO SCH ×2 (10:56→20:44)
[2021-01-27] MEDS: ATORVASTATIN 10 MG TABLET PO SCH (20:44)
[2021-01-28] MEDS: PIPERACILLIN/TAZOBACTAM 3,375 MG in SODIUM CHLORIDE 0.9% 100 ML IV SCH ×2 (00:12→09:10)
[2021-01-28] MEDS: metroNIDAZOLE INJ 500 MG/100 ML PREMIX IV SCH ×2 (04:54→14:26)
[2021-01-28 05:34] LABS: Basophils % 0.3 % (0.0-0.8); Eosinophils # 0.2 10*3/uL (0.0-0.87); Eosinophils % 1.6 % (0.00-10.9); Hematocrit 34.6 VOL% (35.7-47.0); Hemoglobin 10.7 GM/DL (12.0-16.0); Immature Granulocytes % 0.5 %; Immature Granulocytes Absolute 0.05 #; Lymphocytes # 1.6 10*3/uL (1.4-4.0); Mean Corpuscular HGB Conc 30.9 GM/DL (32-36); Mean Corpuscular Volume 97.5 FL (87-102); Mean Platelet Volume 11.2 FL (9.6-12.0); Monocytes % 10.8 % (1.7-12.7); Neutrophils % 69.8 % (38.7-73.9); Platelet Count 240 T/CUMM (130-400); Red Blood Count 3.55 MC/CUMM (3.8-5.5); Red Cell Distribution Width 22.1 % (9.3-17.3); White Blood Count 9.3 T/CUMM (4-12)
[2021-01-28 05:54] LABS: Hypochromasia Slight; Microcytosis Slight; Platelet Estimate Adequate
[2021-01-28] MEDS: FERROUS SULFATE 325 MG TABLET PO SCH ×2 (09:11→20:27)
[2021-01-28] MEDS: PANTOPRAZOLE 40 MG TABLET PO SCH (09:11)
[2021-01-28] MEDS: DOCUSATE SODIUM 100 MG CAPSULE PO SCH ×2 (09:12→20:27)
[2021-01-28] MEDS: APIXABAN 5 MG TABLET PO SCH ×2 (09:12→20:27)
[2021-01-28] MEDS: HYDROmorphone 2 MG/1 ML VIAL IV PRN (09:13)
[2021-01-28] MEDS: SODIUM CHLORIDE 0.9% 1,000 ML IV SCH ×2 (11:43→22:51)
[2021-01-28] MEDS: CEFUROXIME 500 MG TABLET PO SCH ×2 (15:15→20:27)
[2021-01-28] MEDS: ATORVASTATIN 10 MG TABLET PO SCH (20:27)
[2021-01-28] MEDS: DICYCLOMINE 10 MG CAPSULE PO PRN (20:29)
[2021-01-29] MEDS: SODIUM CHLORIDE 0.9% 1,000 ML IV SCH (07:30)
[2021-01-29] MEDS: APIXABAN 5 MG TABLET PO SCH ×2 (08:44→20:51)
[2021-01-29] MEDS: CEFUROXIME 500 MG TABLET PO SCH ×2 (08:44→20:51)
[2021-01-29] MEDS: DOCUSATE SODIUM 100 MG CAPSULE PO SCH ×2 (08:44→20:51)
[2021-01-29] MEDS: PANTOPRAZOLE 40 MG TABLET PO SCH (08:44)
[2021-01-29] MEDS: FERROUS SULFATE 325 MG TABLET PO SCH ×2 (08:45→20:51)
[2021-01-29] MEDS: ACETAMINOPHEN 325 MG TABLET PO PRN ×2 (10:28→20:51)
[2021-01-29] MEDS: ATORVASTATIN 10 MG TABLET PO SCH (20:51)
[2021-01-30 07:54] VITALS: BP 176/77
[2021-01-30] MEDS ORDERED: HEPARIN LOCK FLUSH 500 UNIT/5 ML SYRINGE IV ONE (08:37)
[2021-01-30] MEDS: DOCUSATE SODIUM 100 MG CAPSULE PO SCH (08:38)
[2021-01-30] MEDS: FERROUS SULFATE 325 MG TABLET PO SCH (08:38)
[2021-01-30] MEDS: APIXABAN 5 MG TABLET PO SCH (08:38)
[2021-01-30] MEDS: PANTOPRAZOLE 40 MG TABLET PO SCH (08:38)
[2021-01-30] MEDS: CEFUROXIME 500 MG TABLET PO SCH (08:38)
== END 2021-01-30 10:32 | disposition home or self-care (01) | DRG 392 ==
LOC: N.ED 12:06 → N.EDINP 16:23 → N.4E 16:48
PROVIDERS: ADMIT Family Medicine; ATTEND Family Medicine

== ENCOUNTER 2021-11-23 04:34 | Inpatient (IN) ==
[2021-11-23] MEDS ORDERED: HYDROmorphone 1 MG/1 ML SYRINGE IV STA ×2 (06:03→09:31)
[2021-11-23] MEDS ORDERED: SODIUM CHLORIDE 0.9% 1,000 ML IV STA (06:03)
[2021-11-23] MEDS ORDERED: PIPERACILLIN/TAZOBACTAM 3,375 MG in SODIUM CHLORIDE 0.9% 100 ML IV STA (06:03)
[2021-11-23] MEDS ORDERED: ONDANSETRON 4 MG/2 ML VIAL IV STA ×2 (06:03→09:31)
[2021-11-23 07:10] LABS: Basophils # 0.2 10*3/uL (0.0-0.2); Basophils % 0.4 % (0.0-0.8); Hematocrit 40.3 VOL% (35.7-47.0); Hemoglobin 13.4 GM/DL (12.0-16.0); Immature Granulocytes % 3.8 %; Immature Granulocytes Absolute 1.74 #; Lymphocytes # 0.5 10*3/uL (1.4-4.0); Lymphocytes % 1.1 % (21.3-54.2); Mean Corpuscular HGB Conc 33.3 GM/DL (32-36); Mean Corpuscular Volume 107.8 FL (87-102); Mean Platelet Volume 11.4 FL (9.6-12.0); Monocytes % 1.9 % (1.7-12.7); Neutrophils % 92.8 % (38.7-73.9); Platelet Count 131 T/CUMM (130-400); Red Blood Count 3.74 MC/CUMM (3.8-5.5); Red Cell Distribution Width 16.8 % (9.3-17.3)
[2021-11-23 07:12] LABS: White Blood Count 46.3 T/CUMM (4-12)
[2021-11-23 07:34] LABS: Alanine Aminotransferase 19 U/L (13-56); Albumin 2.9 G/DL (3.4-5.0); Alkaline Phosphatase 247 U/L (45-117); Aspartate Amino Transferase 20 U/L (0-37); Blood Urea Nitrogen 20 MG/DL (7-18); Calcium 8.9 MG/DL (8.5-10.1); Carbon Dioxide 28 MMOL/L (21-32); Estimated Glom Filtration Rate 93 ML/MIN; Glucose 114 MG/DL (74-106); Osmolality,Calculated 276.8 MOS/KG (273-304); Potassium 3.6 MMOL/L (3.5-5.1); Sodium 137 MMOL/L (136-145); Total Protein 6.1 G/DL (6.4-8.2)
[2021-11-23 09:33] LABS: Band Neutrophils 1 % (0-10); Metamyelocytes 1 %; Myelocytes 1 %; Segmented Neutrophils 95 % (50-85); Total Cells Counted 100
[2021-11-23 09:34] LABS: Macrocytosis 2+; Platelet Estimate Adequate; Polychromasia Slight
[2021-11-23] MEDS ORDERED: FLUTICASONE 50 MCG NASAL SPRAY 16 GM BOTTLE BOTH NARES PRN (09:47)
[2021-11-23] MEDS ORDERED: VANCOMYCIN 50 MG/ML 60 ML/BOTTLE PO SCH (12:00)
[2021-11-23] MEDS: SODIUM CHLORIDE 0.9% 1,000 ML IV SCH ×2 (12:38→17:59)
[2021-11-23] MEDS ORDERED: PIPERACILLIN/TAZOBACTAM 3,375 MG in SODIUM CHLORIDE 0.9% 100 ML IV SCH (14:00)
[2021-11-23] MEDS: ONDANSETRON 4 MG/2 ML VIAL IV PRN ×2 (14:15→21:10)
[2021-11-23] MEDS: HYDROmorphone 1 MG/1 ML SYRINGE IV PRN (14:18)
[2021-11-23] MEDS: VANCOMYCIN 125 MG CAPSULE PO SCH (17:59)
[2021-11-23] MEDS: DOCUSATE SODIUM 100 MG CAPSULE PO SCH (21:04)
[2021-11-23] MEDS: FERROUS SULFATE 325 MG TABLET PO SCH (21:05)
[2021-11-23] MEDS: APIXABAN 5 MG TABLET PO SCH (21:06)
[2021-11-24] MEDS: SODIUM CHLORIDE 0.9% 1,000 ML IV SCH ×3 (01:23→18:32)
[2021-11-24 05:08] LABS: Basophils # 0.1 10*3/uL (0.0-0.2); Basophils % 0.5 % (0.0-0.8); Eosinophils # 0.2 10*3/uL (0.0-0.87); Eosinophils % 0.7 % (0.00-10.9); Hematocrit 33.8 VOL% (35.7-47.0); Immature Granulocytes % 1.1 %; Immature Granulocytes Absolute 0.24 #; Lymphocytes # 1.3 10*3/uL (1.4-4.0); Lymphocytes % 5.5 % (21.3-54.2); Mean Corpuscular HGB Conc 32.5 GM/DL (32-36); Mean Platelet Volume 10.7 FL (9.6-12.0); Monocytes % 5.2 % (1.7-12.7); Platelet Count 122 T/CUMM (130-400); Red Blood Count 3.13 MC/CUMM (3.8-5.5); Red Cell Distribution Width 16.7 % (9.3-17.3)
[2021-11-24 05:28] LABS: White Blood Count 22.7 T/CUMM (4-12)
[2021-11-24 05:31] LABS: Band Neutrophils 1 % (0-10); Hypochromia Slight; Lymphocytes 5 % (20-55); Microcytosis Slight; Platelet Estimate Normal; Segmented Neutrophils 92 % (50-85); Total Cells Counted 100
[2021-11-24] MEDS: VANCOMYCIN 125 MG CAPSULE PO SCH ×4 (05:54→18:32)
[2021-11-24] MEDS: DOCUSATE SODIUM 100 MG CAPSULE PO SCH ×2 (08:18→20:52)
[2021-11-24] MEDS: PANTOPRAZOLE 40 MG TABLET PO SCH (08:38)
[2021-11-24] MEDS: APIXABAN 5 MG TABLET PO SCH ×2 (08:39→20:52)
[2021-11-24] MEDS: FERROUS SULFATE 325 MG TABLET PO SCH ×2 (08:39→20:52)
[2021-11-24] MEDS: ASCORBIC ACID 500 MG TABLET PO SCH (08:39)
[2021-11-24] MEDS: ONDANSETRON 4 MG/2 ML VIAL IV PRN (09:37)
[2021-11-24] MEDS: ACETAMINOPHEN 325 MG TABLET PO PRN (16:37)
[2021-11-25] MEDS: VANCOMYCIN 125 MG CAPSULE PO SCH ×4 (01:21→17:16)
[2021-11-25] MEDS: SODIUM CHLORIDE 0.9% 1,000 ML IV SCH ×3 (02:33→19:50)
[2021-11-25] MEDS: HYDROmorphone 1 MG/1 ML SYRINGE IV PRN (03:13)
[2021-11-25 08:01] LABS: Basophils # 0.1 10*3/uL (0.0-0.2); Basophils % 0.5 % (0.0-0.8); Eosinophils # 0.3 10*3/uL (0.0-0.87); Eosinophils % 2.1 % (0.00-10.9); Hematocrit 37.1 VOL% (35.7-47.0); Hemoglobin 12.2 GM/DL (12.0-16.0); Immature Granulocytes % 5.1 %; Immature Granulocytes Absolute 0.78 #; Lymphocytes # 1.6 10*3/uL (1.4-4.0); Lymphocytes % 10.4 % (21.3-54.2); Mean Corpuscular HGB Conc 32.9 GM/DL (32-36); Mean Corpuscular Volume 108.2 FL (87-102); Mean Platelet Volume 10.9 FL (9.6-12.0); Monocytes % 8.9 % (1.7-12.7); Platelet Count 115 T/CUMM (130-400); Red Blood Count 3.43 MC/CUMM (3.8-5.5); Red Cell Distribution Width 16.9 % (9.3-17.3); White Blood Count 15.3 T/CUMM (4-12)
[2021-11-25 08:43] LABS: Band Neutrophils 13 % (0-10); Eosinophils 7 % (0-10); Lymphocytes 8 % (20-55); Segmented Neutrophils 64 % (50-85); Total Cells Counted 100
[2021-11-25 08:47] LABS: Macrocytosis 1+
[2021-11-25] MEDS: PANTOPRAZOLE 40 MG TABLET PO SCH (08:51)
[2021-11-25] MEDS: ASCORBIC ACID 500 MG TABLET PO SCH (08:52)
[2021-11-25] MEDS: APIXABAN 5 MG TABLET PO SCH ×2 (08:52→21:34)
[2021-11-25] MEDS: FERROUS SULFATE 325 MG TABLET PO SCH ×2 (08:52→21:34)
[2021-11-25] MEDS: DOCUSATE SODIUM 100 MG CAPSULE PO SCH ×2 (10:52→22:47)
[2021-11-25] MEDS: ACETAMINOPHEN 325 MG TABLET PO PRN (19:24)
[2021-11-26] MEDS: VANCOMYCIN 125 MG CAPSULE PO SCH ×2 (01:14→05:26)
[2021-11-26] MEDS: SODIUM CHLORIDE 0.9% 1,000 ML IV SCH ×2 (05:27→10:09)
[2021-11-26 08:13] VITALS: BP 132/68
[2021-11-26] MEDS: FERROUS SULFATE 325 MG TABLET PO SCH (08:45)
[2021-11-26] MEDS: ASCORBIC ACID 500 MG TABLET PO SCH (08:45)
[2021-11-26] MEDS: PANTOPRAZOLE 40 MG TABLET PO SCH (08:45)
[2021-11-26] MEDS: APIXABAN 5 MG TABLET PO SCH (08:45)
[2021-11-26] MEDS: DOCUSATE SODIUM 100 MG CAPSULE PO SCH (08:48)
[2021-11-26] MEDS ORDERED: HEPARIN LOCK FLUSH 500 UNIT/5 ML SYRINGE IV ONE (09:51)
== END 2021-11-26 10:16 | disposition home or self-care (01) | DRG 372 ==
LOC: N.ED 04:34 → N.EDINP 09:46 → N.TELES 13:47
PROVIDERS: ADMIT Family Medicine; ATTEND Family Medicine

== ENCOUNTER 2022-05-03 18:17 | Inpatient (IN) ==
[2022-05-03] MEDS ORDERED: SODIUM CHLORIDE 0.9% 1,000 ML IV STA (23:44)
[2022-05-03] MEDS ORDERED: ONDANSETRON 4 MG/2 ML VIAL IV STA (23:44)
[2022-05-03] MEDS ORDERED: MORPHINE 2 MG/1 ML SYRINGE IV STA (23:44)
[2022-05-04 00:28] LABS: Albumin 2.8 G/DL (3.4-5.0); Calcium 9.2 MG/DL (8.5-10.1); Osmolality,Calculated 260.9 MOS/KG (273-304); Potassium 4.1 MMOL/L (3.5-5.1); Total Protein 6.4 G/DL (6.4-8.2)
[2022-05-04 00:33] LABS: Basophils % 0.1 % (0.0-0.8); Eosinophils % 0.1 % (0.00-10.9); Hematocrit 39.1 VOL% (35.7-47.0); Hemoglobin 12.9 GM/DL (12.0-16.0); Immature Granulocytes % 0.7 %; Immature Granulocytes Absolute 0.09 #; Lymphocytes # 0.9 10*3/uL (1.4-4.0); Lymphocytes % 6.7 % (21.3-54.2); Mean Corpuscular Volume 97.3 FL (87-102); Mean Platelet Volume 10.6 FL (9.6-12.0); Monocytes % 14.6 % (1.7-12.7); Neutrophils % 77.8 % (38.7-73.9); Platelet Count 260 T/CUMM (130-400); Red Blood Count 4.02 MC/CUMM (3.8-5.5); Red Cell Distribution Width 21.2 % (9.3-17.3); White Blood Count 13.3 T/CUMM (4-12)
[2022-05-04] MEDS ORDERED: DIPHENOXYLATE/ATROPINE 2.5-0.025 MG TABLET PO PRN (00:52)
[2022-05-04 01:54] LABS: Urine Appearance Clear (Clear); Urine Color Yellow (Yellow)
[2022-05-04 01:55] LABS: Bilirubin,Urine Negative (Negative); Glucose,Urine (UA) Negative (Negative); Ketones,Urine Trace mg/dL (Negative); Nitrite,Urine Negative (Negative); Protein,Urine 100 mg/dL (Negative); Urine Specific Gravity 1.025 (1.001-1.035)
[2022-05-04 01:56] LABS: Blood, Urine Small mg/dL (Negative); Urine Urobilinogen 0.2 eU/dL (<2.0)
[2022-05-04 01:59] LABS: Mucus,Urine Occasional /LPF (Occasional); Squamous Epithelial Cell,Urine Many /HPF (0-10)
[2022-05-04] MEDS: HYDROmorphone 1 MG/1 ML SYRINGE IV PRN ×3 (02:38→20:06)
[2022-05-04] MEDS: SODIUM CHLORIDE 0.9% 1,000 ML IV SCH ×4 (02:41→18:06)
[2022-05-04] MEDS: FERROUS SULFATE 325 MG TABLET PO SCH ×2 (09:06→20:56)
[2022-05-04] MEDS: APIXABAN 5 MG TABLET PO SCH ×2 (09:06→20:56)
[2022-05-04] MEDS: CEFDINIR 300 MG CAPSULE PO SCH ×2 (09:06→20:56)
[2022-05-04] MEDS: PANTOPRAZOLE 40 MG TABLET PO SCH (09:06)
[2022-05-04] MEDS ORDERED: HYDROmorphone 1 MG/1 ML SYRINGE IV PRN (12:03)
[2022-05-04] MEDS ORDERED: BISACODYL 10 MG SUPP RECTAL PRN (13:04)
[2022-05-04] MEDS ORDERED: PROMETHAZINE INJ 12.5 MG in SODIUM CHLORIDE 0.9% 50 ML IV PRN (13:04)
[2022-05-04] MEDS ORDERED: PEGFILGRASTIM 6 MG/0.6 ML SUBCUT SCH (13:30)
[2022-05-04 14:36] LABS: Basophils % 0.2 % (0.0-0.8); Hematocrit 34.2 VOL% (35.7-47.0); Hemoglobin 11.3 GM/DL (12.0-16.0); Immature Granulocytes % 0.9 %; Immature Granulocytes Absolute 0.16 #; Lymphocytes # 0.7 10*3/uL (1.4-4.0); Lymphocytes % 3.5 % (21.3-54.2); Mean Corpuscular Volume 99.1 FL (87-102); Mean Platelet Volume 10.8 FL (9.6-12.0); Monocytes # 1.6 10*3/uL (0.11-0.8); Monocytes % 8.3 % (1.7-12.7); Neutrophils % 87.1 % (38.7-73.9); Platelet Count 204 T/CUMM (130-400); Red Blood Count 3.45 MC/CUMM (3.8-5.5); Red Cell Distribution Width 20.6 % (9.3-17.3); White Blood Count 18.6 T/CUMM (4-12)
[2022-05-04 14:54] LABS: Albumin 2.5 G/DL (3.4-5.0); Calcium 8.1 MG/DL (8.5-10.1); Osmolality,Calculated 262.8 MOS/KG (273-304); Potassium 3.8 MMOL/L (3.5-5.1); Total Protein 5.7 G/DL (6.4-8.2)
[2022-05-04 15:16] LABS: Atypical Lymphocytes Few; Lymphocytes 6 % (20-55); Total Cells Counted 100
[2022-05-04 15:19] LABS: Hypochromia Slight; Ovalocytes Slight; Tear Drop Cells Slight
[2022-05-04 15:20] LABS: Microcytosis Slight
[2022-05-04 15:21] LABS: Platelet Estimate Normal
[2022-05-05] MEDS ORDERED: HYDROmorphone 1 MG/1 ML SYRINGE IV ONE (01:53)
[2022-05-05] MEDS: ONDANSETRON 4 MG/2 ML VIAL IV PRN ×2 (02:07→08:24)
[2022-05-05] MEDS: SODIUM CHLORIDE 0.9% 1,000 ML IV SCH ×3 (05:34→18:11)
[2022-05-05 06:38] LABS: Basophils % 0.2 % (0.0-0.8); Eosinophils % 0.2 % (0.00-10.9); Hematocrit 35.3 VOL% (35.7-47.0); Hemoglobin 11.3 GM/DL (12.0-16.0); Immature Granulocytes % 0.8 %; Lymphocytes # 1.1 10*3/uL (1.4-4.0); Lymphocytes % 8.9 % (21.3-54.2); Mean Corpuscular Volume 100.3 FL (87-102); Mean Platelet Volume 10.8 FL (9.6-12.0); Monocytes # 1.8 10*3/uL (0.11-0.8); Monocytes % 13.8 % (1.7-12.7); Neutrophils % 76.1 % (38.7-73.9); Platelet Count 210 T/CUMM (130-400); Red Blood Count 3.52 MC/CUMM (3.8-5.5); Red Cell Distribution Width 20.8 % (9.3-17.3); White Blood Count 12.9 T/CUMM (4-12)
[2022-05-05 07:14] LABS: Albumin 2.8 G/DL (3.4-5.0); Calcium 8.2 MG/DL (8.5-10.1); Osmolality,Calculated 264.7 MOS/KG (273-304); Potassium 3.4 MMOL/L (3.5-5.1)
[2022-05-05] MEDS: ACETAMINOPHEN 325 MG TABLET PO PRN ×2 (07:59→23:10)
[2022-05-05] MEDS: CEFDINIR 300 MG CAPSULE PO SCH ×2 (08:58→21:01)
[2022-05-05] MEDS: APIXABAN 5 MG TABLET PO SCH ×2 (08:59→21:01)
[2022-05-05] MEDS: FERROUS SULFATE 325 MG TABLET PO SCH ×2 (08:59→21:01)
[2022-05-05] MEDS: PANTOPRAZOLE 40 MG TABLET PO SCH (08:59)
[2022-05-05] MEDS: SIMETHICONE CHEW 125 MG TABLET PO SCH ×4 (09:58→21:01)
[2022-05-05] MEDS ORDERED: SODIUM PHOSPHATE ENEMA 133 ML BOTTLE RECTAL ONE (12:00)
[2022-05-05] MEDS: oxyCODONE/ACETAMINOPHEN 5-325 MG TABLET PO PRN ×2 (12:28→18:11)
[2022-05-06] MEDS: oxyCODONE/ACETAMINOPHEN 5-325 MG TABLET PO PRN ×4 (00:51→21:54)
[2022-05-06] MEDS: SODIUM CHLORIDE 0.9% 1,000 ML IV SCH ×3 (02:17→21:53)
[2022-05-06] MEDS: LIDOCAINE 5% PATCH TRANSDERM SCH ×2 (08:45→21:22)
[2022-05-06] MEDS: APIXABAN 5 MG TABLET PO SCH ×2 (08:45→21:22)
[2022-05-06] MEDS: CEFDINIR 300 MG CAPSULE PO SCH ×2 (08:45→21:22)
[2022-05-06] MEDS: PANTOPRAZOLE 40 MG TABLET PO SCH (08:45)
[2022-05-06] MEDS: FERROUS SULFATE 325 MG TABLET PO SCH ×2 (08:46→21:22)
[2022-05-06] MEDS: SIMETHICONE CHEW 125 MG TABLET PO SCH ×4 (08:46→21:22)
[2022-05-06] MEDS: ACETAMINOPHEN 325 MG TABLET PO PRN (13:35)
[2022-05-06] MEDS: TEMAZEPAM 7.5 MG CAPSULE PO SCH (21:22)
[2022-05-07] MEDS: LIDOCAINE 5% PATCH TRANSDERM SCH ×3 (04:12→20:36)
[2022-05-07] MEDS: SODIUM CHLORIDE 0.9% 1,000 ML IV SCH ×3 (05:56→16:57)
[2022-05-07 06:16] LABS: Basophils # 0.1 10*3/uL (0.0-0.2); Basophils % 0.2 % (0.0-0.8); Hematocrit 35.1 VOL% (35.7-47.0); Hemoglobin 11.4 GM/DL (12.0-16.0); Immature Granulocytes % 0.9 %; Immature Granulocytes Absolute 0.29 #; Lymphocytes # 0.9 10*3/uL (1.4-4.0); Lymphocytes % 2.7 % (21.3-54.2); Mean Corpuscular HGB Conc 32.5 GM/DL (32-36); Mean Corpuscular Volume 99.4 FL (87-102); Mean Platelet Volume 10.8 FL (9.6-12.0); Monocytes # 2.6 10*3/uL (0.11-0.8); Monocytes % 8.3 % (1.7-12.7); Neutrophils % 87.9 % (38.7-73.9); Platelet Count 209 T/CUMM (130-400); Red Blood Count 3.53 MC/CUMM (3.8-5.5); Red Cell Distribution Width 21.2 % (9.3-17.3); White Blood Count 31.9 T/CUMM (4-12)
[2022-05-07 06:35] LABS: Calcium 8.5 MG/DL (8.5-10.1); Osmolality,Calculated 261.8 MOS/KG (273-304); Potassium 2.9 MMOL/L (3.5-5.1)
[2022-05-07 06:47] LABS: Lymphocytes 2 % (20-55); Platelet Estimate Adequate; Total Cells Counted 100
[2022-05-07] MEDS: oxyCODONE/ACETAMINOPHEN 5-325 MG TABLET PO PRN ×2 (11:31→20:38)
[2022-05-07] MEDS: PANTOPRAZOLE 40 MG TABLET PO SCH (11:31)
[2022-05-07] MEDS: FERROUS SULFATE 325 MG TABLET PO SCH ×2 (11:31→20:36)
[2022-05-07] MEDS: CEFDINIR 300 MG CAPSULE PO SCH ×2 (11:32→20:37)
[2022-05-07] MEDS: APIXABAN 5 MG TABLET PO SCH ×2 (11:32→20:36)
[2022-05-07] MEDS: SIMETHICONE CHEW 125 MG TABLET PO SCH ×4 (11:32→20:37)
[2022-05-07] MEDS: DEXAMETHASONE 4 MG/1 ML VIAL IV SCH ×2 (13:43→19:21)
[2022-05-07] MEDS: POTASSIUM CHLORIDE 20 MEQ TABLET PO PRN (15:35)
[2022-05-07] MEDS: TEMAZEPAM 7.5 MG CAPSULE PO SCH (20:38)
[2022-05-08] MEDS: SODIUM CHLORIDE 0.9% 1,000 ML IV SCH ×3 (01:23→14:10)
[2022-05-08] MEDS: DEXAMETHASONE 4 MG/1 ML VIAL IV SCH ×3 (01:24→21:18)
[2022-05-08] MEDS: APIXABAN 5 MG TABLET PO SCH ×2 (09:27→21:18)
[2022-05-08] MEDS: FERROUS SULFATE 325 MG TABLET PO SCH ×2 (09:28→21:18)
[2022-05-08] MEDS: CEFDINIR 300 MG CAPSULE PO SCH ×2 (09:29→21:19)
[2022-05-08] MEDS: PANTOPRAZOLE 40 MG TABLET PO SCH (09:29)
[2022-05-08] MEDS: SIMETHICONE CHEW 125 MG TABLET PO SCH ×4 (09:30→21:18)
[2022-05-08 10:10] LABS: Basophils % 0.1 % (0.0-0.8); Hematocrit 37.1 VOL% (35.7-47.0); Hemoglobin 12.2 GM/DL (12.0-16.0); Immature Granulocytes % 0.6 %; Immature Granulocytes Absolute 0.13 #; Lymphocytes # 0.9 10*3/uL (1.4-4.0); Lymphocytes % 4.6 % (21.3-54.2); Mean Corpuscular HGB Conc 32.9 GM/DL (32-36); Mean Corpuscular Volume 99.5 FL (87-102); Mean Platelet Volume 10.6 FL (9.6-12.0); Monocytes # 2.2 10*3/uL (0.11-0.8); Monocytes % 10.8 % (1.7-12.7); Neutrophils % 83.9 % (38.7-73.9); Platelet Count 242 T/CUMM (130-400); Red Blood Count 3.73 MC/CUMM (3.8-5.5); Red Cell Distribution Width 21.4 % (9.3-17.3); White Blood Count 20.5 T/CUMM (4-12)
[2022-05-08 10:28] LABS: Lymphocytes 7 % (20-55); Platelet Estimate Adequate; Total Cells Counted 100
[2022-05-08 10:33] LABS: Albumin 2.8 G/DL (3.4-5.0); Bilirubin,Total 1.2 MG/DL (0.20-1.00); Calcium 9.1 MG/DL (8.5-10.1); Osmolality,Calculated 260.8 MOS/KG (273-304); Potassium 3.1 MMOL/L (3.5-5.1); Total Protein 6.3 G/DL (6.4-8.2)
[2022-05-08] MEDS: LIDOCAINE 5% PATCH TRANSDERM SCH ×2 (13:12→21:18)
[2022-05-08] MEDS: ALBUTEROL 2.5 MG/3 ML NEB RESP TX PRN (14:15)
[2022-05-08] MEDS: oxyCODONE/ACETAMINOPHEN 5-325 MG TABLET PO PRN (21:19)
[2022-05-09] MEDS: SODIUM CHLORIDE 0.9% 1,000 ML IV SCH (04:06)
[2022-05-09] MEDS: DEXAMETHASONE 4 MG/1 ML VIAL IV SCH ×2 (08:55→21:29)
[2022-05-09] MEDS: POTASSIUM CHLORIDE 20 MEQ TABLET PO PRN (08:57)
[2022-05-09] MEDS: SIMETHICONE CHEW 125 MG TABLET PO SCH (08:58)
[2022-05-09] MEDS: FERROUS SULFATE 325 MG TABLET PO SCH (08:58)
[2022-05-09] MEDS: CEFDINIR 300 MG CAPSULE PO SCH (08:58)
[2022-05-09] MEDS: PANTOPRAZOLE 40 MG TABLET PO SCH (08:58)
[2022-05-09] MEDS: APIXABAN 5 MG TABLET PO SCH (08:58)
[2022-05-09] MEDS: LIDOCAINE 5% PATCH TRANSDERM SCH ×2 (09:01→21:31)
[2022-05-09] MEDS ORDERED: MORPHINE 2 MG/1 ML SYRINGE SUBCUT PRN (11:55)
[2022-05-09] MEDS: MORPHINE 2 MG/1 ML SYRINGE IV PRN (12:11)
[2022-05-09] MEDS ORDERED: LORazepam 2 MG/1 ML VIAL IV PRN (14:32)
[2022-05-10] MEDS: DEXAMETHASONE 4 MG/1 ML VIAL IV SCH ×2 (09:35→20:36)
[2022-05-10] MEDS: LIDOCAINE 5% PATCH TRANSDERM SCH ×2 (09:40→20:37)
[2022-05-10] MEDS: MORPHINE 2 MG/1 ML SYRINGE IV PRN (21:53)
[2022-05-11] MEDS: MORPHINE 2 MG/1 ML SYRINGE IV PRN (07:29)
[2022-05-11] MEDS: LIDOCAINE 5% PATCH TRANSDERM SCH ×2 (09:27→21:04)
[2022-05-11] MEDS: DEXAMETHASONE 4 MG/1 ML VIAL IV SCH ×2 (09:28→21:03)
[2022-05-11] MEDS: ALBUTEROL 2.5 MG/3 ML NEB RESP TX PRN (21:00)
[2022-05-12] MEDS: MORPHINE 2 MG/1 ML SYRINGE IV PRN ×3 (02:39→23:46)
[2022-05-12] MEDS: DEXAMETHASONE 4 MG/1 ML VIAL IV SCH ×2 (09:29→21:58)
[2022-05-12] MEDS: LIDOCAINE 5% PATCH TRANSDERM SCH ×2 (09:32→21:58)
[2022-05-13] MEDS: MORPHINE 2 MG/1 ML SYRINGE IV PRN ×3 (03:45→21:58)
[2022-05-13] MEDS: DEXAMETHASONE 4 MG/1 ML VIAL IV SCH ×2 (08:42→21:54)
[2022-05-13] MEDS: LIDOCAINE 5% PATCH TRANSDERM SCH ×2 (08:43→21:54)
[2022-05-13 14:17] LABS: INR 1.3; PT Patient Result 14.2 SECS (10.1-12.1)
[2022-05-14] MEDS: MORPHINE 2 MG/1 ML SYRINGE IV PRN ×2 (04:46→09:28)
[2022-05-14 08:41] VITALS: BP 170/73
[2022-05-14] MEDS: LIDOCAINE 5% PATCH TRANSDERM SCH (09:19)
[2022-05-14] MEDS: DEXAMETHASONE 4 MG/1 ML VIAL IV SCH (09:31)
== END 2022-05-14 15:02 | disposition hospice, home (50) | DRG 92 ==
LOC: N.EDINP 18:17 → N.ED 18:17 → N.TELES 05-04 01:31
PROVIDERS: ADMIT Family Medicine; ATTEND Family Medicine